=== PATIENT | female | born 2000 | race Caucasian/White ===

== ENCOUNTER → 2022-05-09 | Outpatient (CLI) | payer OTHER ==
[~2022-05-09] MED LIST: ACET325UDC; ACET80L; ALBU.083IS; ALBU.083IS IH; ALBU90OI; AMOX50SU PO; AZIT100SU PO; FLUO10 PO; GUAI100SY; GUAI600T33; HYDPAM25 PO; NEBULIZ USE; ONDA4 PO; PRED15SY PO
== END | disposition home or self-care (01) ==
LOC: LAB 18:23 → LAB SHORT 18:23
DX: J02.9 Acute pharyngitis, unspecified (principal)
CPT/HCPCS: 87081

== ENCOUNTER → 2023-02-05 | Outpatient (CLI) | payer OTHER ==
[~2023-02-05] MED LIST changes: +METO10 PO; +ONDA4ODT MM; +PROM12.5S PR
== END ==
LOC: LAB SHORT 13:25 → LAB 13:25
DX: R11.2 Nausea with vomiting, unspecified (principal)
CPT/HCPCS: 87077; 87086; 87186

== ENCOUNTER 2023-02-06 19:54 | Emergency (ER) | payer OTHER ==
[~2023-02-06] VITALS: Ht 157.5 cm; Wt 60.3 kg
[~2023-02-06 19:54] MED LIST changes: -METO10 PO; -ONDA4ODT MM; -PROM12.5S PR
[2023-02-06 20:00] VITALS: BP 131/96
[2023-02-06 20:34] LABS: BASOPHILS ABSOLUTE AUTO 0.09 K/mm3 (0.00-0.23); BASOPHILS PERCENT AUTO 1 % (0-2); EOSINOPHILS ABSOLUTE AUTO 0.12 K/mm3 (0.00-0.68); EOSINOPHILS PERCENT AUTO 1 % (0-6); Hematocrit 40.9 % (33.0-51.0); Hemoglobin 14.3 g/dL (11.5-16.0); IMMATURE GRAN ABSOLUTE AUTO 0.05 K/mm3 (0.00-0.10); IMMATURE GRAN PERCENT AUTO 0 % (0-1); LYMPHOCYTES ABSOLUTE AUTO 1.38 K/mm3 (0.84-5.20); LYMPHOCYTES PERCENT AUTO 9 % (21-46); MONOCYTES PERCENT AUTO 7 % (4-13); Mean Corpuscular HGB 32.1 pg (26.0-34.0); Mean Corpuscular Volume 92 fL (80-100); Mean Platelet Volume 10.3 fL (9.1-12.4); NEUTROPHILS ABSOLUTE AUTO 12.44 K/mm3 (1.96-9.15); NEUTROPHILS PERCENT AUTO 82 % (41-73); Platelet Count 328 K/mm3 (150-400); RDW Coefficient Variation 12.3 % (11.7-14.2); Red Blood Cell Count 4.45 M/mm3 (3.80-5.20); White Blood Cell Count 15.18 K/mm3 (4.00-11.30)
[2023-02-06 21:08] LABS: Albumin, Blood 4.6 g/dL (3.4-5.0); Albumin/Globulin Ratio 1.2 (0.8-1.8); Bilirubin, Total 0.9 mg/dL (0.1-1.0); Bun/Creatinine Ratio 17.2 (12.0-20.0); Calcium, Blood 9.9 mg/dL (8.5-10.1); Creatinine, Blood 0.64 mg/dL (0.40-1.00); Globulin, Blood 3.8 g/dL (2.2-4.0); Potassium, Blood 3.6 mmol/L (3.5-5.5); Total Protein, Blood 8.4 g/dL (6.4-8.2)
[2023-02-06] MEDS ORDERED: ONDA4ODT MM ×2 (22:12→22:35)
[2023-02-06 23:03] LABS: Influenza A, PCR NEGATIVE (NEGATIVE); Influenza B, PCR NEGATIVE (NEGATIVE); Resp Syncytial Virus, PCR NEGATIVE (NEGATIVE); SARS-Cov-2 (COVID-19) PCR, MMC NEGATIVE (NEGATIVE)
== END 2023-02-06 22:58 | disposition home or self-care (01) ==
LOC: ER 19:54
PROVIDERS: Student in an Organized Health Care Education/Training Program
DX: O21.9 Vomiting of pregnancy, unspecified (principal); O99.341 Other mental disorders complicating pregnancy, first trimester; F41.9 Anxiety disorder, unspecified; Z20.822 Contact with and (suspected) exposure to COVID-19; O99.111 Other diseases of the blood and blood-forming organs and certain disorders involving the immune mechanism complicating pregnancy, first trimester; D72.829 Elevated white blood cell count, unspecified; O99.511 Diseases of the respiratory system complicating pregnancy, first trimester; J45.909 Unspecified asthma, uncomplicated; Z79.899 Other long term (current) drug therapy; Z91.018 Allergy to other foods; Z3A.01 Less than 8 weeks gestation of pregnancy
CPT/HCPCS: 0241U; 80053; 83690; 84702; 85025; 96361; 96374; 99284-25; J2405; J7030

== ENCOUNTER 2023-02-08 06:43 | Emergency (ER) | payer OTHER ==
[~2023-02-08] VITALS: Ht 160 cm; Wt 59.0 kg
[~2023-02-08 06:43] MED LIST changes: +ONDA4ODT MM
[2023-02-08 07:20] VITALS: BP 106/88
[2023-02-08 07:26] LABS: BASOPHILS ABSOLUTE AUTO 0.06 K/mm3 (0.00-0.23); BASOPHILS PERCENT AUTO 1 % (0-2); EOSINOPHILS ABSOLUTE AUTO 0.49 K/mm3 (0.00-0.68); EOSINOPHILS PERCENT AUTO 8 % (0-6); Hematocrit 41.9 % (33.0-51.0); Hemoglobin 14.3 g/dL (11.5-16.0); IMMATURE GRAN ABSOLUTE AUTO 0.04 K/mm3 (0.00-0.10); IMMATURE GRAN PERCENT AUTO 1 % (0-1); LYMPHOCYTES ABSOLUTE AUTO 1.44 K/mm3 (0.84-5.20); LYMPHOCYTES PERCENT AUTO 22 % (21-46); MONOCYTES ABSOLUTE AUTO 0.77 K/mm3 (0.16-1.47); MONOCYTES PERCENT AUTO 12 % (4-13); Mean Corpuscular HGB 32.4 pg (26.0-34.0); Mean Corpuscular HGB Conc 34.1 g/dL (31.5-36.5); Mean Corpuscular Volume 95 fL (80-100); Mean Platelet Volume 10.1 fL (9.1-12.4); NEUTROPHILS ABSOLUTE AUTO 3.77 K/mm3 (1.96-9.15); NEUTROPHILS PERCENT AUTO 57 % (41-73); Platelet Count 277 K/mm3 (150-400); RDW Coefficient Variation 12.4 % (11.7-14.2); RDW Standard Deviation 42.9 fL (35.1-46.3); Red Blood Cell Count 4.42 M/mm3 (3.80-5.20); White Blood Cell Count 6.57 K/mm3 (4.00-11.30)
[2023-02-08 07:33] LABS: Source, Urine Clean Catch
[2023-02-08 07:43] LABS: Appearance, Urine Clear (Clear); Bilirubin, Urine Neg (Neg); Blood, Urine 1+ (Neg); Color, Urine Yellow (P-Yellow); Glucose Qualitative, Urine Neg (Neg); Ketones, Urine 4+ (Neg); Leukocyte Esterase, Urine 1+ (Neg); Nitrite, Urine Neg (Neg); Protein, Urine 1+ (Neg); Specific Gravity, Urine 1.025 (1.003-1.022); Urobilinogen, Urine NORM (Normal)
[2023-02-08 07:48] LABS: Albumin, Blood 4.5 g/dL (3.4-5.0); Albumin/Globulin Ratio 1.2 (0.8-1.8); Bilirubin, Direct 0.2 mg/dL (0.0-0.3); Bilirubin, Indirect 0.4 mg/dL (0.1-0.7); Bilirubin, Total 0.6 mg/dL (0.1-1.0); Bun/Creatinine Ratio 15.7 (12.0-20.0); Calcium, Blood 9.3 mg/dL (8.5-10.1); Creatinine, Blood 0.64 mg/dL (0.40-1.00); Globulin, Blood 3.9 g/dL (2.2-4.0); Magnesium, Blood 2.1 mg/dL (1.6-2.4); Potassium, Blood 3.5 mmol/L (3.5-5.5); Total Protein, Blood 8.4 g/dL (6.4-8.2)
[2023-02-08 08:00] LABS: Bacteria Mod /hpf; Squamous Epithelial Cells Mod /hpf (Few)
[2023-02-08] MEDS ORDERED: METO10 PO (09:03)
[2023-02-08] MEDS ORDERED: PROM12.5S PR (09:03)
== END 2023-02-08 09:17 | disposition home or self-care (01) ==
LOC: ER 06:43
PROVIDERS: Student in an Organized Health Care Education/Training Program
DX: O21.9 Vomiting of pregnancy, unspecified (principal); Z3A.01 Less than 8 weeks gestation of pregnancy; Z88.8 Allergy status to other drugs, medicaments and biological substances; Z79.899 Other long term (current) drug therapy; J45.909 Unspecified asthma, uncomplicated; O99.511 Diseases of the respiratory system complicating pregnancy, first trimester
CPT/HCPCS: 76801; 80048; 80076; 81001; 83690; 83735; 84702; 85025; 87086; 96374; 99284-25; J2765; J7042

== ENCOUNTER 2023-02-18 10:05 | Emergency (ER) | payer OTHER ==
[~2023-02-18] VITALS: Ht 160 cm; Wt 60.3 kg
[~2023-02-18 10:05] MED LIST changes: +METO10 PO; +PROM12.5S PR
[2023-02-18 10:33] VITALS: BP 119/85
[2023-02-18 12:26] LABS: Albumin, Blood 4.5 g/dL (3.4-5.0); Albumin/Globulin Ratio 1.3 (0.8-1.8); Bun/Creatinine Ratio 19.2 (12.0-20.0); Calcium, Blood 9.9 mg/dL (8.5-10.1); Creatinine, Blood 0.52 mg/dL (0.40-1.00); Globulin, Blood 3.4 g/dL (2.2-4.0); Potassium, Blood 4.2 mmol/L (3.5-5.5); Total Protein, Blood 7.9 g/dL (6.4-8.2)
[2023-02-18 12:40] LABS: BASOPHILS ABSOLUTE AUTO 0.04 K/mm3 (0.00-0.23); BASOPHILS PERCENT AUTO 0 % (0-2); EOSINOPHILS ABSOLUTE AUTO 0.02 K/mm3 (0.00-0.68); EOSINOPHILS PERCENT AUTO 0 % (0-6); Hematocrit 40.5 % (33.0-51.0); Hemoglobin 13.9 g/dL (11.5-16.0); IMMATURE GRAN ABSOLUTE AUTO 0.06 K/mm3 (0.00-0.10); IMMATURE GRAN PERCENT AUTO 1 % (0-1); LYMPHOCYTES PERCENT AUTO 14 % (21-46); MONOCYTES ABSOLUTE AUTO 0.94 K/mm3 (0.16-1.47); MONOCYTES PERCENT AUTO 8 % (4-13); Mean Corpuscular HGB Conc 34.3 g/dL (31.5-36.5); Mean Corpuscular Volume 93 fL (80-100); NEUTROPHILS ABSOLUTE AUTO 9.46 K/mm3 (1.96-9.15); NEUTROPHILS PERCENT AUTO 77 % (41-73); Platelet Count 349 K/mm3 (150-400); RDW Coefficient Variation 12.1 % (11.7-14.2); RDW Standard Deviation 42.1 fL (35.1-46.3); Red Blood Cell Count 4.34 M/mm3 (3.80-5.20); White Blood Cell Count 12.22 K/mm3 (4.00-11.30)
== END 2023-02-18 13:41 | disposition home or self-care (01) ==
LOC: ER 10:05
PROVIDERS: Physician Assistant
DX: O26.891 Other specified pregnancy related conditions, first trimester (principal); O99.281 Endocrine, nutritional and metabolic diseases complicating pregnancy, first trimester; O99.331 Smoking (tobacco) complicating pregnancy, first trimester; R11.2 Nausea with vomiting, unspecified; E86.0 Dehydration; F17.290 Nicotine dependence, other tobacco product, uncomplicated; Z3A.09 9 weeks gestation of pregnancy; Z79.899 Other long term (current) drug therapy
CPT/HCPCS: 80053; 84702; 85025; 96361; 96374; 99284-25; J2765; J7120

== ENCOUNTER 2023-10-12 20:04 | Inpatient (IN) | payer OTHER ==
[~2023-10-12] VITALS: Ht 160 cm; Wt 68.2 kg
[2023-10-12] MEDS ORDERED: Misoprostol 25 MCG Tab VAG PRN (20:30)
[2023-10-12] MEDS ORDERED: Carboprost Tromethamine 250 MCG/ML 1ML Amp IM PRN (20:30)
[2023-10-12] MEDS ORDERED: Tranexamic Acid 100 ML IV SCH (20:30)
[2023-10-12] MEDS ORDERED: Acetaminophen 500 MG Tab PO PRN (20:30)
[2023-10-12] MEDS ORDERED: Oxytocin 10 Unit / ML Vial IM PRN (20:30)
[2023-10-12] MEDS ORDERED: Lactated Ringer's 1,000 ML IV SCH (20:30)
[2023-10-12] MEDS ORDERED: Ondansetron HCl 2 MG / ML 2ML Vial IV PRN (20:30)
[2023-10-12] MEDS ORDERED: Misoprostol 200 MCG Tab BC PRN (20:30)
[2023-10-12] MEDS ORDERED: Lactated Ringer's 1,000 ML IV PRN (20:30)
[2023-10-12] MEDS ORDERED: OXYTOCIN/RINGER'S LACTATE 500 ML IV PRN (20:30)
[2023-10-12] MEDS ORDERED: Misoprostol 200 MCG Tab PR PRN (20:30)
[2023-10-12] MEDS ORDERED: Methylergonovine Maleate 0.2MG / ML 1ML Amp IM PRN (20:30)
[2023-10-12 20:35] VITALS: BP 121/70
[2023-10-12] MEDS ORDERED: Calcium Carbonate 500 MG Tab Chew PO PRN (20:35)
[2023-10-12 21:09] LABS: BASOPHILS ABSOLUTE AUTO 0.04 K/mm3 (0.00-0.23); BASOPHILS PERCENT AUTO 0 % (0-2); EOSINOPHILS PERCENT AUTO 1 % (0-6); Hematocrit 34.8 % (33.0-51.0); Hemoglobin 11.7 g/dL (11.5-16.0); IMMATURE GRAN ABSOLUTE AUTO 0.13 K/mm3 (0.00-0.10); IMMATURE GRAN PERCENT AUTO 1 % (0-1); LYMPHOCYTES PERCENT AUTO 15 % (21-46); MONOCYTES ABSOLUTE AUTO 1.23 K/mm3 (0.16-1.47); MONOCYTES PERCENT AUTO 8 % (4-13); Mean Corpuscular HGB 32.8 pg (26.0-34.0); Mean Corpuscular HGB Conc 33.6 g/dL (31.5-36.5); Mean Corpuscular Volume 98 fL (80-100); NEUTROPHILS ABSOLUTE AUTO 11.79 K/mm3 (1.96-9.15); NEUTROPHILS PERCENT AUTO 76 % (41-73); Platelet Count 195 K/mm3 (150-400); RDW Standard Deviation 46.4 fL (35.1-46.3); Red Blood Cell Count 3.57 M/mm3 (3.80-5.20); White Blood Cell Count 15.59 K/mm3 (4.00-11.30)
[2023-10-12 21:25] VITALS: BP 121/60
[2023-10-12] MEDS ORDERED: Zolpidem Tartrate 10 MG Tab PO PRN (21:40)
[2023-10-12] MEDS ORDERED: FentaNYL Citrate 50 MCG/ML 2 ML Injection IV PRN (21:45)
[2023-10-12] MEDS ORDERED: DiphenhydrAMINE HCl 50 MG Cap PO PRN (21:45)
[2023-10-12] MEDS ORDERED: Cephalexin Monohydrate 500 MG Cap PO SCH (22:00)
[2023-10-12 22:24] VITALS: BP 132/79
[2023-10-12 22:25] VITALS: BP 126/79
[2023-10-12 22:54] VITALS: BP 109/62
[2023-10-12 23:24] VITALS: BP 117/68
[2023-10-13] VITALS (47 sets, daily range): BP systolic 94–162; BP diastolic 51–85
[2023-10-13] MEDS ORDERED: Lactated Ringer's 1,000 ML IV PRN (02:00)
[2023-10-13] MEDS ORDERED: Lactated Ringer's 1,000 ML IV SCH ×3 (02:00→17:30)
[2023-10-13] MEDS ORDERED: FentaNYL 2mcg/ml-Bup 0.1% Epd 250 ML EPI PRN (02:00)
[2023-10-13] MEDS ORDERED: ePHEDrine Sulfate 50 MG/ML 1ML Injection XX PRN (02:00)
[2023-10-13] MEDS ORDERED: OXYTOCIN/RINGER'S LACTATE 500 ML IV SCH ×2 (12:15→17:25)
[2023-10-13] MEDS ORDERED: OxyCODONE 5 mg/Acetamin 325 mg TABLET PO PRN (17:20)
[2023-10-13] MEDS ORDERED: Benzocaine Topical Anesthetic Spray 60GM TOP PRN (17:25)
[2023-10-13] MEDS ORDERED: Docusate Sodium 100 MG Cap PO PRN (17:25)
[2023-10-13] MEDS ORDERED: Lanolin Cream TOP PRN (17:25)
[2023-10-13] MEDS ORDERED: Witch Hazel/Glycerin PADS TOP PRN (17:25)
[2023-10-13] MEDS ORDERED: Diphth,Pertuss(Acell),Tet Vac 0.5 ML VIAL IM ONE (17:25)
[2023-10-13] MEDS ORDERED: Ibuprofen 400 MG Tab PO PRN (17:25)
[2023-10-13] MEDS ORDERED: Ketorolac Tromethamine 30mg Vial IV PRN (17:30)
[2023-10-13] MEDS ORDERED: Misoprostol 200 MCG Tab PO PRN (17:30)
[2023-10-13] MEDS ORDERED: Methylergonovine Maleate 0.2MG / ML 1ML Amp IM PRN (17:30)
[2023-10-14 00:46] VITALS: BP 133/75
[2023-10-14 04:01] VITALS: BP 92/50
[2023-10-14 06:57] LABS: Hematocrit 27.7 % (33.0-51.0); Hemoglobin 9.5 g/dL (11.5-16.0); Mean Corpuscular HGB 33.5 pg (26.0-34.0); Mean Corpuscular HGB Conc 34.3 g/dL (31.5-36.5); Mean Corpuscular Volume 98 fL (80-100); Mean Platelet Volume 12.2 fL (9.1-12.4); Platelet Count 181 K/mm3 (150-400); RDW Coefficient Variation 13.2 % (11.7-14.2); RDW Standard Deviation 46.2 fL (35.1-46.3); Red Blood Cell Count 2.84 M/mm3 (3.80-5.20); White Blood Cell Count 23.67 K/mm3 (4.00-11.30)
[2023-10-14 07:27] VITALS: BP 116/63
[2023-10-14] MEDS ORDERED: Prenatal Vit/FE Fumarate/FA 1 Tab PO SCH (09:00)
[2023-10-14 11:15] VITALS: BP 110/64
--- NOTE | 2023-10-14 13:24 | NUR ---
[facility] REP AT BEDSIDE
[2023-10-14 18:01] VITALS: BP 117/74
[2023-10-14] MEDS ORDERED: CEPH500 PO (19:05)
[2023-10-14] MEDS ORDERED: IBUP800 PO (19:06)
--- NOTE | 2023-10-14 19:06 | NUR ---
Printed d/c instructions reveiwed by pt. Verbal teaching done with RN and SO. Questions answered to their satisfaction. Deny additional questions/concerns at this time.
[2023-10-14 19:32] VITALS: BP 117/65
--- NOTE | 2023-10-14 19:45 | NUR ---
DISCHARGE NOTE; PT TO DC NOW. DISCHARGE INSTRUCTIONS PROVIDED BY PRIOR SHIFT. NB FOLDER AND PPFU APPT CARD PROVIDED TO PATIENT. BLEEDING IS STABLE, PT DENIES ANY HEADAHCE, BLURRED VISION OR PASSING OF ANY BLOOD CLOTS. PT TO RETURN FOR FOLLOW UP THURSDAY AT 10AM.
== END 2023-10-14 19:35 | disposition home or self-care (01) | DRG 806 ==
LOC: OBS 20:04 → BC 20:06 → OBS 20:13 → BC 20:14
PROVIDERS: ADMIT Advanced Practice Midwife
PROC: 10E0XZZ Delivery of Products of Conception, External Approach (ICD-10-PCS; principal; 2023-10-13)
PROC: 10907ZC Drainage of Amniotic Fluid, Therapeutic from Products of Conception, Via Natural or Artificial Opening (ICD-10-PCS; 2023-10-13)
PROC: 0HQ9XZZ Repair Perineum Skin, External Approach (ICD-10-PCS; 2023-10-13)
PROC: 3E0R3BZ Introduction of Anesthetic Agent into Spinal Canal, Percutaneous Approach (ICD-10-PCS; 2023-10-13)
PROC: 00HU33Z Insertion of Infusion Device into Spinal Canal, Percutaneous Approach (ICD-10-PCS; 2023-10-13)
DX: O36.5930 Maternal care for other known or suspected poor fetal growth, third trimester, not applicable or unspecified (principal); O23.03 Infections of kidney in pregnancy, third trimester; Z37.0 Single live birth; Z3A.39 39 weeks gestation of pregnancy; O70.0 First degree perineal laceration during delivery; O69.81X0 Labor and delivery complicated by cord around neck, without compression, not applicable or unspecified
CPT/HCPCS: 36415; 51702; 85025; 85027; 86850; 86900; 86901; 86920; A9270; J1885; J2210; J2405; J2590; J7120

== ENCOUNTER 2024-02-10 12:02 | Emergency (ER) | payer OTHER ==
[~2024-02-10] VITALS: Ht 160 cm; Wt 52.6 kg
[~2024-02-10 12:02] MED LIST changes: +CEPH500 PO; +IBUP800 PO
[2024-02-10] MEDS ORDERED: ONDA4ODT MM (12:45)
[2024-02-10 13:04] LABS: BASOPHILS ABSOLUTE AUTO 0.05 K/mm3 (0.00-0.23); BASOPHILS PERCENT AUTO 1 % (0-2); EOSINOPHILS ABSOLUTE AUTO 0.14 K/mm3 (0.00-0.68); EOSINOPHILS PERCENT AUTO 2 % (0-6); Hematocrit 41.4 % (33.0-51.0); Hemoglobin 13.9 g/dL (11.5-16.0); IMMATURE GRAN ABSOLUTE AUTO 0.03 K/mm3 (0.00-0.10); IMMATURE GRAN PERCENT AUTO 0 % (0-1); LYMPHOCYTES ABSOLUTE AUTO 1.04 K/mm3 (0.84-5.20); LYMPHOCYTES PERCENT AUTO 12 % (21-46); MONOCYTES ABSOLUTE AUTO 0.96 K/mm3 (0.16-1.47); MONOCYTES PERCENT AUTO 11 % (4-13); Mean Corpuscular HGB 30.6 pg (26.0-34.0); Mean Corpuscular HGB Conc 33.6 g/dL (31.5-36.5); Mean Corpuscular Volume 91 fL (80-100); Mean Platelet Volume 11.1 fL (9.1-12.4); NEUTROPHILS PERCENT AUTO 75 % (41-73); Platelet Count 281 K/mm3 (150-400); RDW Coefficient Variation 13.4 % (11.7-14.2); Red Blood Cell Count 4.54 M/mm3 (3.80-5.20); White Blood Cell Count 8.92 K/mm3 (4.00-11.30)
[2024-02-10 13:29] LABS: Albumin, Blood 4.2 g/dL (3.4-5.0); Albumin/Globulin Ratio 1.2 (0.8-1.8); Bilirubin, Total 0.7 mg/dL (0.1-1.0); Bun/Creatinine Ratio 9.6 (12.0-20.0); Calcium, Blood 9.4 mg/dL (8.5-10.1); Creatinine, Blood 0.83 mg/dL (0.40-1.00); Globulin, Blood 3.6 g/dL (2.2-4.0); Potassium, Blood 3.3 mmol/L (3.5-5.5); Total Protein, Blood 7.8 g/dL (6.4-8.2)
[2024-02-10 13:56] LABS: Source, Urine Clean Catch
[2024-02-10 13:59] LABS: Appearance, Urine Hazy (Clear); Blood, Urine 1+ (Neg); Color, Urine Yellow (P-Yellow); Glucose Qualitative, Urine Neg (Neg); Ketones, Urine 4+ (Neg); Leukocyte Esterase, Urine 1+ (Neg); Nitrite, Urine Pos (Neg); Protein, Urine 2+ (Neg); Urobilinogen, Urine 3+ (Normal)
[2024-02-10 14:01] LABS: Bilirubin, Urine 1+ (Neg)
[2024-02-10 14:11] LABS: Bacteria Many /hpf; Mucus Mod (0-Heavy)
[2024-02-10 14:12] LABS: Red Blood Cells, Urine 0-2 /hpf (0-2); Squamous Epithelial Cells Few /hpf (Few)
[2024-02-10] MEDS ORDERED: Ondansetron HCl 2 MG / ML 2ML Vial IV ONE (14:15)
[2024-02-10] MEDS ORDERED: NS 1,000 ML IV SCH (14:15)
[2024-02-10] MEDS ORDERED: CefTRIAXone Sodium 1,000 MG in NS 100 ML IV ONE (14:15)
[2024-02-10 15:18] VITALS: BP 118/77
[2024-02-10] MEDS ORDERED: CEPH500 PO (15:21)
[2024-02-10] MEDS ORDERED: FAMO20 PO (15:21)
[2024-02-10] MEDS ORDERED: ONDA4 PO (15:21)
== END 2024-02-10 15:20 | disposition home or self-care (01) ==
LOC: ER 12:02
PROVIDERS: Physician Assistant
DX: N39.0 Urinary tract infection, site not specified (principal); J45.909 Unspecified asthma, uncomplicated; Z91.018 Allergy to other foods
CPT/HCPCS: 80053; 81001; 81025; 85025; 87077; 87086; 87186; 96374; 96375; 99284-25; J0696; J2405; J7030